=== PATIENT | female | born 1980 | race African-American/Black ===

== ENCOUNTER 2016-09-22 04:04 | Emergency (ER) | payer MEDICAID ==
[~2016-09-22] VITALS: Ht 165.1 cm; Wt 74.8 kg
[~2016-09-22 04:04] MED LIST: LORA-655 PO
[2016-09-22 06:29] VITALS: BP 91/44
== END 2016-09-22 06:52 | disposition home or self-care (01) ==
LOC: ER 04:04 → EDUNIT# 04:04 → EDBD 04:04 → ER 06:52
DX: F41.9 Anxiety disorder, unspecified (principal)
CPT/HCPCS: 93005

== ENCOUNTER 2016-09-28 06:08 | Emergency (ER) | payer MEDICAID ==
[~2016-09-28] VITALS: Ht 154.9 cm; Wt 79.4 kg
[2016-09-28 07:11] LABS: Basophils # (auto) 0 uL; Basophils % (auto) 0.6 % (0.0-2.0); CONDITION Y; Eosinophils # (auto) 0.3 uL; Eosinophils % (auto) 4.8 % (0.0-7.0); Hematocrit 41.8 % (36.0-46.0); Hemoglobin 14.2 g/dL (12.2-16.2); Lymphocytes # (auto) 2.6 uL; Mean Corpuscular Hemoglobin 31.4 pg (28.0-32.0); Mean Corpuscular Hgb Conc. 33.9 g/dL (32.0-36.0); Mean Corpuscular Volume 92.7 fL (80.0-100.0); Monocytes # (auto) 0.6 uL; Monocytes % (auto) 9.8 % (0.0-12.0); Neutrophils # (auto) 2.2 uL; Neutrophils % (auto) 38.8 % (37.0-80.0); Platelet Count (auto) 293 10^3/uL (140-450); Red Cell Distribution Width 13.4 % (11.6-16.0); White Blood Cell 5.7 10^3/uL (4.4-10.8)
[2016-09-28 07:22] LABS: Albumin 3.5 g/dL (3.4-5.0); BUN/Creatinine Ratio 18.7; Calcium 8.4 mg/dL (8.5-10.1); Potassium 3.9 mmol/L (3.5-5.1)
[2016-09-28 07:30] LABS: Bilirubin, Total 0.4 mg/dL (0.2-1.0); Total Protein 7.4 g/dL (6.4-8.2)
[2016-09-28] MEDS ORDERED: SODIUM CHLORIDE 0.9% 1,000 ML IVB ONE (07:31)
[2016-09-28] MEDS ORDERED: KETOROLAC TROMETH 30 MG/ML 1ML VIAL IV ONE (07:45)
[2016-09-28] MEDS ORDERED: ONDANSETRON HCL 4 MG/2 ML VIAL IV ONE (07:45)
[2016-09-28 10:49] VITALS: BP 103/58
== END 2016-09-28 11:01 | disposition home or self-care (01) ==
LOC: ER 06:25
DX: M79.1 Myalgia (principal); M54.9 Dorsalgia, unspecified; R20.0 Anesthesia of skin; Z98.51 Tubal ligation status
CPT/HCPCS: 36415; 74176; 80053; 84702; 85025; 94761; 96361; 96374; 99285; J1885; J2405

== ENCOUNTER 2021-03-26 02:37 | Emergency (ER) | payer MEDICAID ==
[~2021-03-26] VITALS: Ht 152.4 cm; Wt 83.9 kg
[2021-03-26 05:20] VITALS: BP 120/82
[2021-03-26] MEDS ORDERED: FLUT1SPR5 (05:52)
[2021-03-26] MEDS ORDERED: ONDA-144 PO (05:52)
[2021-03-26] MEDS ORDERED: LORA-622 PO (05:52)
[2021-03-26] MEDS ORDERED: ALBU108A5 IN (05:52)
[2021-03-26] MEDS ORDERED: AZITTAB PO (05:52)
[2021-03-26] MEDS ORDERED: ACET-1304 PO (05:52)
[2021-03-26] MEDS ORDERED: PREN-96 PO (06:00)
== END 2021-03-26 05:54 | disposition home or self-care (01) ==
LOC: ER 02:39
DX: O98.511 Other viral diseases complicating pregnancy, first trimester (principal); U07.1 COVID-19
CPT/HCPCS: 36415; 87426